=== PATIENT | female | born 1970 | race African-American/Black ===

== ENCOUNTER 2020-04-06 10:41 | Emergency (ER) | payer MEDICAID ==
[~2020-04-06] VITALS: Ht 167.6 cm; Wt 72.0 kg
[2020-04-06] MEDS ORDERED: SODIUM CHLORIDE 0.9% 1,000 ML IV ONE (11:15)
[2020-04-06 11:27] LABS: BASOPHILS % 0.3 % (0.0-2.0); EOSINOPHILS % 0.2 % (0.0-5.0); HEMATOCRIT. 42.9 % (36.0-48.0); HEMOGLOBIN. 14.2 g/dL (12.0-16.0); LYMPHOCYTES % 11.9 % (20.0-50.0); MEAN CORPUSCULAR HEMOGLOBIN 29.5 pg (28.0-32.0); MEAN CORPUSCULAR VOLUME 88.9 fL (81.0-99.0); MEAN PLATELET VOLUME 9.3 fl (7.4-10.4); MONOCYTES % 7.4 % (2.0-8.0); NEUTROPHILS % 80.2 % (40.0-76.0); PLATELET 228 x1000/uL (130-400); RED BLOOD CELL COUNT 4.82 mill/uL (4.2-5.4); RED CELL DISTRIBUTION WIDTH 14.3 % (11.6-14.6)
[2020-04-06] MEDS ORDERED: LORAZEPAM 2MG/ML CPJ IV ONE (11:30)
[2020-04-06] MEDS ORDERED: OLANZAPINE 10 MG/VIAL IM ONE (11:30)
[2020-04-06 11:38] LABS: CHLORIDE 111 mEq/L (98-107)
[2020-04-06 11:45] LABS: ETHANOL BLOOD < 10 mg/dL
[2020-04-06] MEDS ORDERED: POTASSIUM CHLORIDE 20MEQ TABLET SR PO ONE (14:45)
[2020-04-06 16:51] VITALS: BP 104/62
== END 2020-04-06 16:53 | disposition home or self-care (01) ==
LOC: ER 10:41
DX: R41.82 Altered mental status, unspecified (principal); E87.6 Hypokalemia
CPT/HCPCS: 36415; 80053; 80307; 80320; 80329; 85025; 96361; 96372; 96374; 99285; J2060; J3490; J7030; G0480